=== PATIENT | male | born 1970 | race Caucasian/White ===

== ENCOUNTER 2016-08-23 18:35 | Emergency (ER) | payer MEDICAID, OTHER ==
[2016-08-23 18:46] VITALS: TEMP 98.6
--- NOTE | 2016-08-23 18:49 | EDPHY ---
H & P Stated Complaint: etoh Time Seen by Provider: 08/23/16 18:48 - Personal History Current Tetanus Diphtheria and Acellular Pertussis (TDAP): Yes Tetanus Vaccine Date: 2011 - Medical/Surgical History Hx Asthma: No Hx Chronic Respiratory Disease: No Hx Diabetes: No Hx Cardiac Disease: No Hx Renal Disease: No Hx Cirrhosis: No Hx Alcoholism: No Hx HIV/AIDS: No Hx Splenectomy or Spleen Trauma: No Other PMH: schizophrenia - Social History Smoking Status: Current every day smoker Constitutional: Initial Vital Signs Temperature (C) 37 C 08/23/16 18:43 Heart Rate 93 08/23/16 18:43 Respiratory Rate 16 08/23/16 18:43 Blood Pressure 118/80 08/23/16 18:43 O2 Sat (%) 94 08/23/16 18:43 O2 Delivery Mode Room Air Allergies/Adverse Reactions: No Known Allergies Allergy (Verified 06/21/12 01:54) Home Medications: Medication Instructions Recorded No Medications [No Meds] 1 ea MISC 11/12/12 Pharmacy Completed 11/12/12 11/12/12 AZITHROMYCIN [Z-PACK] 250 mg PO DAILY #1 packet 01/09/13 Albuterol [Proventil Inhaler HFA 1 - 2 puffs IH Q4PRN PRN #1 mdi 01/09/13 (*)] Remeron 01/09/13 Zyprexa 01/09/13 oxyCODONE/APAP 5/325 [Percocet 1 - 2 tab PO Q6-8PRN PRN #20 tab 01/29/13 5/325 (RX)] Medical Decision Making ED Course/Re-evaluation: CHIEF COMPLAINT: Alcohol intoxication. HISTORY OF PRESENT ILLNESS: The patient is a chronic alcoholic living on the [address]. Patient drinks on a daily basis and obtains whatever alcohol is available; he states, "I'm just a drunkard man." Patient was found by bystanders who called EMS system. Patient has had multiple ER visits over the last several years for the same complaint. Patient denies any injuries denies loss of consciousness denies any recent trauma. Patient denies co-ingestion. Patient denies suicidal or homicidal behavior. REVIEW OF SYSTEMS: A 10 point review of systems was performed and is negative with the exception of the elements mentioned in the history of present illness. PHYSICAL EXAM: General Appearance: Alert, well hydrated, appropriate, and non-toxic appearing. Smells of alcohol. Head: Healing scab on forehead, otherwise atraumatic without scalp tenderness or obvious injury Eyes: Pupils equal, round, reactive to light and accommodation, EOMI, no trauma , no injection. Nose: Atraumatic, no rhinorrhea, clear. Throat: Mucus membranes moist. Neck: Supple, nontender, no lymphadenopathy. Respiratory: No retractions, no distress, no wheezes, and no accessory muscle use. Lungs are clear to auscultation bilaterally. Cardiovascular: Regular rate and rhythm, no murmurs, rubs, or gallops. Good capillary refill all extremities. Gastrointestinal: Abdomen is soft, nontender, non-distended, no masses, no rebound, no guarding, no peritoneal signs. Musculoskeletal: Normal active ROM of all extremities, atraumatic. Neurological: Alert, appropriate, and interactive. Nonfocal neuro exam. Skin: No rashes, good turgor, no nodules on palpation. PAST MEDICAL HISTORY: Alcohol abuse PAST SURGICAL HISTORY: Denies SOCIAL HISTORY: Homeless, alcohol abuse DIFFERENTIAL DIAGNOSIS: The differential diagnosis for the patient's presentation included but was not limited to alcohol abuse, intoxicants, electrolyte abnormalities, G[employer] abnormalities. MEDICAL DECISION MAKING: I serially examined this patient since the patient's arrival here in the emergency department. The patient continues to become more and more sober with each examination. I serially questioned the patient and the patient's story given initially has not changed. The patient still denies any trauma, any head injury, and any illicit drug use. At this point, the patient is walking the department freely and is clinically sober. We're discharging the patient to the [facility] in stable condition. Departure - Departure Disposition: Home, Routine, Self-Care Clinical Impression: Alcohol intoxication Qualifiers: Complication of substance-induced condition: uncomplicated Qualified Code(s): F10.920 - Alcohol use, unspecified with intoxication, uncomplicated Condition: Good Instructions: Alcohol Intoxication (ED), Abuse of Alcohol (ED) Additional Instructions: Reduce alcohol use. Go to the [facility] if you wish to detox. Return to the ED for any worsening of condition. Referrals: [facility] Detox 24 Hours [Outside] - As per Instructions Report Scribed for: Jony Perez Report Scribed by: Janine Ortega Date of Report: 08/23/16 Time of Report: 18:58
[2016-08-23 19:24] VITALS: BP 110/77; PULSE 81; RESP 18; O2SAT 96
== END 2016-08-23 19:23 | disposition home or self-care (01) ==
LOC: EDUNIT#
DX: F10.120 Alcohol abuse with intoxication, uncomplicated (principal); F17.200 Nicotine dependence, unspecified, uncomplicated

== ENCOUNTER 2016-08-29 20:10 | Emergency (ER) | payer MEDICAID ==
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
[2016-08-29 20:48] LABS: % IMMATURE GRANULYOCYTES 0.4 % (0.0-1.1); ABSOLUTE IMMATURE GRANULOCYTES 0.04 10^3/uL (0.00-0.10); ADD DIFF? NO; ADD MORPH? NO; ADD SCAN? NO; ATYPICAL LYMPHOCYTE FLAG 0 (0-99); FRAGMENT RBC FLAG 0 (0-99); HEMATOCRIT 49.8 % (40.0-51.0); HEMOGLOBIN 17.3 g/dL (13.7-17.5); LEFT SHIFT FLG 0 (0-99); LIPEMIA HEMOLYSIS FLAG 90 (0-99); MEAN CELL HEMOGLOBIN 33.4 pg (27.9-34.1); MEAN CELL HEMOGLOBIN CONCENTR. 34.7 g/dL (32.4-36.7); MEAN CELL VOLUME 96.1 fL (81.5-99.8); MEAN PLATELET VOLUME 9.2 fL (8.7-11.7); PLATELET CLUMPS FLAG 0 (0-99); PLATELET COUNT 323 10^3/uL (150-400); RED BLOOD CELL COUNT 5.18 10^6/uL (4.40-6.38); RED CELL DISTRIBUTION WIDTH 15.9 % (11.5-15.2)
[2016-08-29 21:01] LABS: ANION GAP 21 mEq/L (8-16); CALCIUM 9.8 mg/dL (8.5-10.4); CARBON DIOXIDE 17 mEq/l (22-31); CHLORIDE 104 mEq/L (97-110); CREATININE 0.8 mg/dL (0.7-1.3); ETHANOL SERUM 299 mg/dL (0-10); GLOMERULAR FILTRATION RATE > 60; GLUCOSE 89 mg/dL (70-100); POTASSIUM 4.2 mEq/L (3.5-5.2); SODIUM 142 mEq/L (134-144)
[2016-08-29] MEDS ORDERED: LORazepam 1 MG TAB PO ONE (21:51)
[2016-08-29] MEDS ORDERED: LORazepam 1 MG TAB ONE (21:52)
[2016-08-29] MEDS ORDERED: NICOTINE 21 MG/24 HR PATCH TD ONE ×2 (21:52→21:56)
[2016-08-30] MEDS ORDERED: LORazepam 1 MG TAB PO ONE ×3 (07:48→23:03)
[2016-08-30] MEDS ORDERED: ONDANSETRON DISINTEGRATING 4 MG TAB PO ONE ×2 (10:25→14:48)
[2016-08-30] MEDS ORDERED: ONDANSETRON DISINTEGRATING 4 MG TAB ONE ×2 (14:43→23:00)
[2016-08-30] MEDS ORDERED: LORazepam 1 MG TAB ONE ×2 (14:43→23:00)
[2016-08-30] MEDS ORDERED: ONDANSETRON 4 MG/2 ML VIAL IVP ONE (23:04)
[2016-08-31] MEDS ORDERED: ONDANSETRON DISINTEGRATING 4 MG TAB PO ONE (11:40)
[2016-08-31] MEDS ORDERED: DIAZEPAM 5 MG TAB PO ONE (11:47)
[2016-08-31 15:30] VITALS: RESP 14
[2016-08-31] MEDS ORDERED: chlordiazePOXIDE 25 MG CAP PO ONE (15:38)
[2016-08-31] MEDS ORDERED: CHLORDIAZEPOXIDE 25MG PREPK#6 BTL TAKEHOME ONE ×2 (16:19→16:20)
[2016-08-31] MEDS ORDERED: ONDANSETRON DISINTEGRATING 4 MG TAB ONE (18:23)
[2016-08-31 18:36] VITALS: BP 126/93; PULSE 95; TEMP 98.8; O2SAT 96
== END 2016-08-31 18:52 ==
DX: R45.851 Suicidal ideations (principal); F20.9 Schizophrenia, unspecified; F17.200 Nicotine dependence, unspecified, uncomplicated
CPT/HCPCS: 80305; 96374; G0480

== ENCOUNTER 2017-01-12 12:20 | Emergency (ER) | payer MEDICAID ==
[2017-01-12 12:27] VITALS: BP 131/78; PULSE 110; RESP 16; TEMP 98.2; O2SAT 98
[2017-01-12] MEDS ORDERED: NS 500 ML IV ONE (12:27)
[2017-01-12] MEDS ORDERED: ALBUTEROL 3 ML DEYVIAL IH ONE ×3 (12:27→13:48)
[2017-01-12] MEDS ORDERED: methylPREDNISolone SOD SUCC 125 MG/2 ML VIAL IVP ONE (12:27)
--- NOTE | 2017-01-12 12:30 | EDPHY ---
H & P Time Seen by Provider: 01/12/17 12:21 HPI/ROS: CHIEF COMPLAINT: Shortness of breath HISTORY OF PRESENT ILLNESS: Patient developed cough and cold symptoms 2 months ago and has been short of breath ever since, worse over the last week with coughing and wheezing and worsening shortness of breath with exertion. Symptoms severe. Associated with coughing yellow sputum. He has to lidocaine patches on the right side of his chest where he relates that he fell down and injured his ribs about a week ago. REVIEW OF SYSTEMS: Eye: no change in vision ENT: no sore throat Cardiac: Denies syncope Pulmonary: HPI Abdomen: no vomiting, diarrhea, abdominal pain Musculoskeletal: no back pain or leg swelling Skin: no rash Neuro: no headache Constitutional: no fever : no urinary symptoms A comprehensive 10 point review of systems is otherwise negative aside from elements mentioned in the history of present illness. PAST MEDICAL HISTORY: Schizoaffective disorder. Patient tells me he is not currently taking any regular medications. Social history: Tobacco smoker, recent alcohol General Appearance: Alert and conversant, cooperative. Eyes: No scleral icterus. ENT, Mouth: Normal mucous membranes. Respiratory: Bilateral expiratory wheezes with prolonged expiratory phase and rhonchi, no focal lung sounds. Cardiovascular: Regular rate and rhythm. Gastrointestinal: Abdomen is soft and non tender. Neurological: Alert and oriented x3. Normally conversant. Face symmetric, normal movement and sensation in all extremities. Skin: Warm and dry, no rashes. Musculoskeletal: No peripheral edema and no joint swelling. No calf tenderness. Psychiatric: Not agitated. Emergency Department course/MDM: Received DuoNeb by the ambulance. Additional albuterol nebulizer and 125 mg Solu-Medrol IV, chest x-ray. Considered including but not limited to CHF, ACS, pulmonary edema, pulmonary embolism, all of which I feel are less likely than acute reactive airway disease. 1346: Chest x-ray report reviewed, possible left lower lung infiltrate. Patient has normal white blood cell count is not febrile and has normal room air oxygen saturation. Additional nebulizer treatments, will treat with Zithromax for bronchitis. 1446:Ambulatory to the bathroom, discharge with prednisone and oral antibiotics and inhaler. Room air saturation in the mid 90s. Smoking Status: Current every day smoker Constitutional: Initial Vital Signs Temperature (C) 36.8 C 01/12/17 12:25 Heart Rate 110 H 01/12/17 12:25 Respiratory Rate 16 01/12/17 12:25 Blood Pressure 131/78 H 01/12/17 12:25 O2 Sat (%) 98 01/12/17 12:25 O2 Delivery Mode Room Air Allergies/Adverse Reactions: No Known Allergies Allergy (Verified 06/21/12 01:54) Home Medications: Medication Instructions Recorded Albuterol [Proventil Inhaler HFA 1 - 2 puffs IH Q4PRN PRN #1 mdi 01/09/13 (*)] Risperdal 08/29/16 Thorazine (*) 08/29/16 Zoloft 50mg (*) 08/29/16 chlordiazePOXIDE [Librium 25 mg 50 mg PO TID PRN #14 cap 08/31/16 (*)] AZITHROMYCIN [Z-PACK] 250 mg PO DAILY #4 tab 01/12/17 Albuterol Hfa Anes Only [Proair 2 puffs IH QID #1 mdi 01/12/17 Hfa Icu (*)] predniSONE [prednisone 20mg (RX)] 60 mg PO DAILY 5 Days tab 01/12/17 Medical Decision Making - Diagnostics Imaging Results: Imaging Impressions Chest X-Ray 01/12/17 12:27 Impression: 1. Patchy left basilar opacities could be related to atelectasis or pneumonia. 2. Additional findings, as above. Chest x-ray personally interpreted shows bronchitis pattern and small left pleural effusion, no pneumonia, no pneumothorax. Differential Diagnosis: Differential diagnosis considered for shortness of breath including but not limited to pulmonary infectious process, COPD, asthma, pulmonary embolus and congestive heart failure. - Data Points Laboratory Results: Laboratory Results 01/12/17 12:24 01/12/17 12:24 01/12/17 01/12/17 12:24 12:24 WBC 10.34 10^3/uL H 10^3/uL (3.80-9.50) RBC 4.26 10^6/uL L 10^6/uL (4.40-6.38) Hgb 15.5 g/dL g/dL (13.7-17.5) Hct 43.8 % % (40.0-51.0) MCV 102.8 fL H fL (81.5-99.8) MCH 36.4 pg H pg (27.9-34.1) MCHC 35.4 g/dL g/dL (32.4-36.7) RDW 14.9 % % (11.5-15.2) Plt Count 125 10^3/uL L 10^3/uL (150-400) MPV 10.4 fL fL (8.7-11.7) Neut % (Auto) 73.8 % % (39.3-74.2) Lymph % (Auto) 12.3 % L % (15.0-45.0) [place] % (Auto) 12.2 % % (4.5-13.0) Eos % (Auto) 0.2 % L % (0.6-7.6) Baso % (Auto) 0.8 % % (0.3-1.7) Nucleat RBC Rel Count 0.0 % % (0.0-0.2) Absolute Neuts (auto) 7.64 10^3/uL H 10^3/uL (1.70-6.50) Absolute Lymphs (auto) 1.27 10^3/uL 10^3/uL (1.00-3.00) Absolute Monos (auto) 1.26 10^3/uL H 10^3/uL (0.30-0.80) Absolute Eos (auto) 0.02 10^3/uL L 10^3/uL (0.03-0.40) Absolute Basos (auto) 0.08 10^3/uL 10^3/uL (0.02-0.10) Absolute Nucleated RBC 0.00 10^3/uL 10^3/uL (0-0.01) Immature Gran % 0.7 % % (0.0-1.1) Immature Gran # 0.07 10^3/uL 10^3/uL (0.00-0.10) Sodium 142 mEq/L mEq/L (134-144) Potassium 3.8 mEq/L mEq/L (3.5-5.2) Chloride 99 mEq/L mEq/L (97-110) Carbon Dioxide 24 mEq/l mEq/l (22-31) Anion Gap 19 mEq/L H mEq/L (8-16) BUN 13 mg/dL mg/dL (7-23) Creatinine 0.7 mg/dL mg/dL (0.7-1.3) Estimated GFR > 60 Glucose 92 mg/dL mg/dL (70-100) Calcium 9.3 mg/dL mg/dL (8.5-10.4) Medications Given: Discontinued Medications Albuterol (Proventil Neb) 3 ml IH EDNOW ONE Stop: 01/12/17 12:28 Last Admin: 01/12/17 12:34 Dose: 3 ml Albuterol (Proventil Neb) 3 ml IH EDNOW ONE Stop: 01/12/17 12:28 Last Admin: 01/12/17 12:34 Dose: 3 ml Albuterol (Proventil Neb) 3 ml IH EDNOW ONE Stop: 01/12/17 13:49 Last Admin: 01/12/17 14:08 Dose: 3 ml Azithromycin (Zithromax) 500 mg PO EDNOW ONE PRN Reason: Protocol Stop: 01/12/17 13:51 Last Admin: 01/12/17 14:08 Dose: 500 mg Sodium Chloride (Ns) 500 mls @ 1,000 mls/hr IV EDNOW ONE PRN Reason: Protocol Stop: 01/12/17 12:56 Last Admin: 01/12/17 12:34 Dose: 500 mls Methylprednisolone Sodium Succinate (Solu-Medrol) 125 mg IVP EDNOW ONE Stop: 01/12/17 12:28 Last Admin: 01/12/17 12:33 Dose: 125 mg Departure - Departure Disposition: Home, Routine, Self-Care Clinical Impression: Reactive airway disease Qualifiers: Asthma severity: moderate Asthma persistence: persistent Asthma complication type: with acute exacerbation Qualified Code(s): J45.41 - Moderate persistent asthma with (acute) exacerbation Acute bronchitis Qualifiers: Bronchitis organism: unspecified organism Qualified Code(s): J20.9 - Acute bronchitis, unspecified Condition: Good Instructions: Reactive Airways Disease (ED) Referrals: [facility],. [Clinic] - As per Instructions Prescriptions: Albuterol Hfa Anes Only [Proair Hfa Icu (*)] 2 puffs IH QID #1 mdi AZITHROMYCIN [Z-PACK] 250 mg PO DAILY #4 tab predniSONE [prednisone 20mg (RX)] 60 mg PO DAILY 5 Days tab
[2017-01-12 12:31] LABS: % IMMATURE GRANULYOCYTES 0.7 % (0.0-1.1); ABSOLUTE IMMATURE GRANULOCYTES 0.07 10^3/uL (0.00-0.10); ADD DIFF? NO; ADD MORPH? NO; ADD SCAN? NO; ATYPICAL LYMPHOCYTE FLAG 20 (0-99); FRAGMENT RBC FLAG 0 (0-99); HEMATOCRIT 43.8 % (40.0-51.0); HEMOGLOBIN 15.5 g/dL (13.7-17.5); LEFT SHIFT FLG 0 (0-99); LIPEMIA HEMOLYSIS FLAG 90 (0-99); MEAN CELL HEMOGLOBIN 36.4 pg (27.9-34.1); MEAN CELL HEMOGLOBIN CONCENTR. 35.4 g/dL (32.4-36.7); MEAN CELL VOLUME 102.8 fL (81.5-99.8); MEAN PLATELET VOLUME 10.4 fL (8.7-11.7); PLATELET CLUMPS FLAG 10 (0-99); PLATELET COUNT 125 10^3/uL (150-400); RED BLOOD CELL COUNT 4.26 10^6/uL (4.40-6.38); RED CELL DISTRIBUTION WIDTH 14.9 % (11.5-15.2)
[2017-01-12 12:46] LABS: ANION GAP 19 mEq/L (8-16); CALCIUM 9.3 mg/dL (8.5-10.4); CARBON DIOXIDE 24 mEq/l (22-31); CHLORIDE 99 mEq/L (97-110); CREATININE 0.7 mg/dL (0.7-1.3); GLOMERULAR FILTRATION RATE > 60; GLUCOSE 92 mg/dL (70-100); POTASSIUM 3.8 mEq/L (3.5-5.2); SODIUM 142 mEq/L (134-144)
[2017-01-12] MEDS ORDERED: AZITHROMYCIN 250 MG TAB PO ONE ×2 (13:50→14:09)
== END 2017-01-12 15:03 | disposition home or self-care (01) ==
LOC: EDUNIT#
PROC: 3E0337Z Introduction of Electrolytic and Water Balance Substance into Peripheral Vein, Percutaneous Approach (ICD-10-PCS; principal; 2017-01-12)
DX: J20.9 Acute bronchitis, unspecified (principal); J45.41 Moderate persistent asthma with (acute) exacerbation; E86.9 Volume depletion, unspecified; F17.200 Nicotine dependence, unspecified, uncomplicated
CPT/HCPCS: 96374; J2930

== ENCOUNTER 2017-01-28 14:27 | Emergency (ER) | payer MEDICAID ==
[2017-01-28 14:34] VITALS: BP 125/94; PULSE 96; RESP 16; TEMP 98.4; O2SAT 95
[2017-01-28] MEDS ORDERED: CHLORDIAZEPOXIDE 25MG PREPK#6 BTL TAKEHOME ONE (14:47)
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
--- NOTE | 2017-01-28 17:17 | ASMTCMCOM ---
CM Note CM Note Notes: Assisted with filling patient's prescriptions through his Medicaid at [facility]. Patient provided medications and pre-pack of Librium and discharged to the [facility] via cab voucher. Patient is homeless and aware of homeless resources, including [facility] [facility]. CM available for further assistance. Date Signed: 01/28/2017 05:17 PM Electronically Signed By:Stephanie Espinoza RN
--- NOTE | 2017-01-28 17:21 | ASDISCHSUM ---
Discharge Information Plan Status:Substance Abuse Referrals Medically Cleared to Leave: Discharge Date:01/28/2017 04:40 PM CM D/C Disposition:Streets (Homeless) ADT D/C Disposition:Home, Routine, Self-Care Projected Discharge Date:01/28/2017 04:40 PM Transportation at D/C:Cab Voucher Discharge Delay Reason: Follow-Up Date:01/28/2017 04:40 PM Discharge Slot: Final Diagnosis: Placement Information Patient Contact Information Contact Name:DAVID Relationship:Father Address: Work Phone: City: [facility] Phone: State/Zip Code: Email: Financial Information Financial Class: Primary Plan Desc:MEDICAID HEALTH FIRST LAUNDRY AGENT Primary Plan Number:[id number] Secondary Plan Desc: Secondary Plan Number: Assessment Information LACE LACE Acuity / Level of Care Answers: No. Emergency dept visits in Answers: 4+ last 6 months Score: 4 Date Signed: 01/28/2017 03:31 PM Electronically Signed By:Stephanie Espinoza RN [facility] CM Progress Note CM Note CM Note Notes: Assisted with filling patient's prescriptions through his Medicaid at [facility]. Patient provided medications and pre-pack of Librium and discharged to the [facility] via cab voucher. Patient is homeless and aware of homeless resources, including [facility] [facility]. CM available for further assistance. Date Signed: 01/28/2017 05:17 PM Electronically Signed By:Stephanie Espinoza RN Intervention Information Intervention Type:Medication Date of Service:01/28/2017 05:17 PM Patient Type:Emergency Room Staff Member:DWAYNE Espinoza Sharon Hours:0.5 Discipline:Copy Holder Severity: Comment:Filled patients medications at [facility] through patient's Medicaid. Also a Librium pre-pack was provided. Intervention Type:Cab Vouchers Date of Service:01/28/2017 05:17 PM Patient Type:Emergency Room Staff Member:DWAYNE Espinoza Sharon Hours:0.25 Discipline:Copy Holder Severity: Comment:[facility] cab voucher used to transport yoandy ent.
== END 2017-01-28 16:40 | disposition home or self-care (01) ==
DX: J20.9 Acute bronchitis, unspecified (principal); F10.239 Alcohol dependence with withdrawal, unspecified

== ENCOUNTER 2017-10-17 09:33 | Emergency (ER) | payer MEDICAID ==
[2017-10-17] MEDS ORDERED: OXYCODONE/APAP 5/325 TAB PO ONE (09:56)
--- NOTE | 2017-10-17 09:56 | EDPHY ---
General Time Seen by Provider: 10/17/17 09:49 Narrative: CHIEF COMPLAINT: Fall, left clavicle shoulder pain HISTORY OF PRESENT ILLNESS: Patient presents with complaints of left shoulder and clavicle plain after falling yesterday. He says he was "roughhousing and sparring," when he reports falling to the ground. He says he struck his shoulder and felt a sudden onset of pain in the left clavicle shoulder. No head strike or loss of consciousness. He says he does feel sore all over but is concerned as the clavicle. Worse with palpation and movement. No position of comfort. 11/26. No radiating pain. No numbness or tingling. No shortness of breath or chest pain. There is a small scratch to the back of the neck that is non concerning to him. No other associated complaints or modifying factors. Tetanus up-to- date less than 2 years ago DOMINANT EXTREMITY: Right-hand dominant ESTABLISHED ORTHOPEDIST: None REVIEW OF SYSTEMS: Ten systems reviewed and are negative unless otherwise noted in the HPI PAST MEDICAL HISTORY: Schizophrenia, asthma PAST SURGICAL HISTORY: No surgical history SOCIAL HISTORY: Occasional smoker. Occasional alcohol use. Denies any drug use. Currently disabled and homeless FAMILY HISTORY: Noncontributory EXAMINATION General Appearance: Alert, no distress HEENT: Normocephalic. Atraumatic. Pupils equal round reactive. Ears are clear Neck: Supple nontender. No crepitus or deformity. Superficial abrasion over the base of the neck. Cardiovascular: Symmetric radial pulses with brisk cap refill the fingers left hand. Neurological: A&O, 2 point sensation intact in the fingers left hand. Interossei strength symmetric. No wrist drop on the left. Skin: Warm and dry, no rash. Superficial abrasion. No laceration or puncture Extremities: Significant ecchymosis, swelling and tenderness of the left clavicle. There is mild tenderness of the left shoulder with hesitation range of motion due to the clavicle injury. Range of motion of the elbows, wrists and fingers symmetric. Range of motion lower extremities unremarkable. All compartments are soft the left upper extremity. Psychiatric: Mood and affect normal DIFFERENTIAL DIAGNOSES: Including but not limited to clavicle fracture, shoulder sprain, shoulder dislocation, shoulder fracture, pneumothorax MDM: 9:55 a.m. Reported mechanical fall with blunt trauma to the left shoulder with swelling, ecchymosis, pain suggestive of clavicular fracture. No evidence of compartment syndrome. I do not feel that dislocation is likely. Lungs are clear in all franklin with good auscultation left upper lobe. He is neurovascular intact distal to the injury. I have ordered pain medication by mouth. I have ordered x-ray of the shoulder. 10:20 a.m. X-ray reveals fracture of the left clavicle with some angulation in overriding of the fracture segments. This is a closed injury. He is neuro intact distally. Will place him in a shoulder sling, case management will visit with him, and he will be discharged home with short course of pain medication. we discussed ED precautions, mandatory orthopedic follow-up, ice, elevation medications. I have answered all his questions. He is discharged home stable condition. 11:00 a.m. Patient has been seen by rn case manager hospiceStephanie. She has contacted the office of Dr. Matute and arranged for the patient to be seen on Friday at 1:30 p.m. [place]. Patient agrees to comply with this plan and knows that he must be seen by him for optimal management of this fracture. SUPERVISION: This patient was independently evaluated without direct involvement of or examination by the attending physician. ED Precautions: Worsening pain. Erythema, edema, cyanosis, pallor, paresthesia or anesthesia. - History Smoking Status: Current every day smoker - Objective Vital Signs: Initial Vital Signs Temperature (C) 98.1 F 10/17/17 09:34 Heart Rate 105 H 10/17/17 09:34 Respiratory Rate 16 10/17/17 09:34 Blood Pressure 123/83 H 10/17/17 09:34 O2 Sat (%) 96 10/17/17 09:34 O2 Delivery Mode Room Air Allergies/Adverse Reactions: No Known Allergies Allergy (Verified 01/28/17 14:29) Home Medications: Medication Instructions Recorded Albuterol [Proventil Inhaler HFA 1 - 2 puffs IH Q4PRN PRN #1 mdi 01/28/17 (*)] Celexa 10/17/17 Ibuprofen 600 mg PO TID #30 tablet 10/17/17 Risperdal 10/17/17 oxyCODONE HCL/ACETAMINOPHEN 1 each PO Q4-6PRN PRN #11 tablet 10/17/17 [Percocet 5-325 mg Tablet] Medications Given: Discontinued Medications Oxycodone/Acetaminophen (Percocet 5/325) 2 tab PO EDNOW ONE Stop: 10/17/17 09:57 Last Admin: 10/17/17 10:02 Dose: 2 tab Departure - Departure Disposition: Home, Routine, Self-Care Clinical Impression: Clavicle fracture, shaft Qualifiers: Encounter type: initial encounter Fracture type: closed Fracture alignment: displaced Laterality: left Qualified Code(s): S42.022A - Displaced fracture of shaft of left clavicle, initial encounter for closed fracture Condition: Good Instructions: Clavicle Fracture (ED) Additional Instructions: 1. Sling for comfort. Removed 3 times daily for range of motion is demonstrated 2. Ice and elevation often 3. Pain medication as prescribed as needed 4. Ibuprofen medication as prescribed as needed 5. Follow up with Orthopedics for definitive care 6. ED precautions for worsening pain, numbness, tingling, wrist drop Referrals: [facility],. [Clinic] - As per Instructions [facility],. [Clinic] - As per Instructions Eliel Matute MD [Medical Doctor] - As per Instructions (Friday at 1:30 p.m.) Prescriptions: Ibuprofen 600 mg PO TID #30 tablet oxyCODONE HCL/ACETAMINOPHEN [Percocet 5-325 mg Tablet] 1 each PO Q4-6PRN PRN # 11 tablet PRN Reason: Pain, Breakthrough
[2017-10-17 10:56] VITALS: BP 123/85
--- NOTE | 2017-10-17 12:59 | ASMTCMCOM ---
CM Note CM Note Notes: Requested to assist pt with getting a follow-up appt w/the on-call orthopedist, Dr Eliel Matute at [facility]; able to get pt an appt on Friday10/21/17 at 1:30pm. Pt agreeable and appreciative. Pt aware he needs to arrive by 1:15pm. Pt states he also plans on following up w[facility] this next week. Pt has been staying at his friends house and his current cell # is [phone]. CM available for further assistance if needed. Date Signed: 10/17/2017 12:58 PM Electronically Signed By:Stephanie Espinoza RN
== END 2017-10-17 11:01 | disposition home or self-care (01) ==
DX: S42.022A Displaced fracture of shaft of left clavicle, initial encounter for closed fracture (principal); F17.200 Nicotine dependence, unspecified, uncomplicated; Z59.0 Homelessness; W19.XXXA Unspecified fall, initial encounter; Y93.83 Activity, rough housing and horseplay
CPT/HCPCS: A4565

== ENCOUNTER 2017-10-19 20:25 | Emergency (ER) | payer MEDICAID ==
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
[2017-10-19] MEDS ORDERED: CHLORDIAZEPOXIDE 25MG PREPK#6 BTL TAKEHOME ONE (23:12)
[2017-10-19 23:39] VITALS: BP 120/81
== END 2017-10-19 23:39 | disposition home or self-care (01) ==
LOC: EDUNIT#
DX: F10.10 Alcohol abuse, uncomplicated (principal); F17.200 Nicotine dependence, unspecified, uncomplicated; Z59.0 Homelessness

== ENCOUNTER 2017-11-20 19:36 | Emergency (ER) | payer OTHER ==
--- NOTE | 2017-11-20 20:46 | EDPHY ---
H & P Smoking Status: Current every day smoker Time Seen by Provider: 11/20/17 20:00 HPI/ROS: CHIEF COMPLAINT: Medical clearance for incarceration HISTORY OF PRESENT ILLNESS: 47-year-old male here with history of alcohol abuse brought by EMS for a clearance for incarceration. Patient denies any pain anywhere. Denies any medical concerns. Denies any chest pain or shortness of breath or abdominal pain or injuries. REVIEW OF SYSTEMS: Constitutional: No fever, no chills. Eyes: No discharge. ENT: No sore throat. Cardiovascular: No chest pain, no palpitations. Respiratory: No cough, no shortness of breath. Gastrointestinal: No abdominal pain, no vomiting. Genitourinary: No hematuria. Musculoskeletal: No back pain. Skin: No rashes. Neurological: No headache. (Bakari Guadalupe) Physical Exam: General Appearance: Alert and no distress. Smells of alcohol Eyes: Pupils equal and round no injection. Respiratory: Chest is nontender, lungs are clear to auscultation. Cardiac: regular rate and rhythm. Gastrointestinal: Abdomen is soft and nontender, no masses, bowel sounds normal. Musculoskeletal: Neck is supple and nontender. Extremities have full range of motion and are nontender. Skin: No rashes or lesions. (Bakari Guadalupe) Constitutional: Initial Vital Signs Temperature (C) 36.8 C 11/20/17 19:48 Heart Rate 67 11/20/17 19:48 Respiratory Rate 18 11/20/17 19:48 Blood Pressure 174/101 H 11/20/17 19:48 O2 Sat (%) 97 11/20/17 19:48 O2 Delivery Mode Room Air Allergies/Adverse Reactions: No Known Allergies Allergy (Verified 11/20/17 19:48) Home Medications: Medication Instructions Recorded Albuterol [Proventil Inhaler HFA 1 - 2 puffs IH Q4PRN PRN #1 mdi 01/28/17 (*)] Celexa 10/17/17 Ibuprofen 600 mg PO TID #30 tablet 10/17/17 Risperdal 10/17/17 oxyCODONE HCL/ACETAMINOPHEN 1 each PO Q4-6PRN PRN #11 tablet 10/17/17 [Percocet 5-325 mg Tablet] Medical Decision Making ED Course/Re-evaluation: I did not see this patient while he was in the emergency department. However his care was discussed with the PA while the patient was in the department. I agree with treatment plan and management (Pantera Bolden) 47-year-old male here for medical clearance for incarceration. He is intoxicated and has a positive of breath alcohol. Additionally his blood sugars within normal limits. He is alert and oriented and ambulatory in cleared for incarceration. (Bakari Guadalupe) Differential Diagnosis: Polysubstance abuse, seizure, (Bakari Guadalupe) - Data Points Laboratory Results: 11/20/17 20:31 POC Glucose 86 mg/dL mg/dL (70-100) Point of Care Test Results: Chemistry 11/20/17 20:31 POC Glucose 86 mg/dL mg/dL (70-100) Departure - Departure Disposition: Home, Routine, Self-Care Clinical Impression: Alcohol intoxication Condition: Fair Instructions: Abuse of Alcohol (ED) Additional Instructions: The patient is medically cleared for incarceration Referrals: NONE *PRIMARY CARE P,. [Primary Care Provider] - As per Instructions [facility],. [Clinic] - As per Instructions
[2017-11-20 20:53] VITALS: BP 146/80
== END 2017-11-20 20:52 | disposition home or self-care (01) ==
LOC: EDUNIT#
DX: F10.920 Alcohol use, unspecified with intoxication, uncomplicated (principal)

== ENCOUNTER 2018-03-08 18:11 | Emergency (ER) | payer MEDICAID ==
[2018-03-08 18:16] VITALS: BP 140/86
[2018-03-08] MEDS ORDERED: CHLORDIAZEPOXIDE 25MG PREPK#6 BTL TAKEHOME ONE (18:19)
--- NOTE | 2018-03-08 18:20 | EDPHY ---
H & P Time Seen by Provider: 03/08/18 18:12 HPI/ROS: CHIEF COMPLAINT: Alcohol intoxication HISTORY OF PRESENT ILLNESS: Patient is a 48-year-old male who presents emergency department intoxicated. Police initially found the patient fairly somnolent brought to the emergency department for evaluation. Once patient arrived in the emergency department he is talkative and walking. Patient reports drinking alcohol. He has no complaints. Police state they will take him to [facility] recovery Center. REVIEW OF SYSTEMS: 10 systems were reveiwed and are negative with the exception of the elements mentioned in the history of present illness. Past Medical/Surgical History: Includes alcohol abuse Social History: Alcohol abuse Smoking Status: Current every day smoker Physical Exam: Vitals noted GENERAL: No acute distress, alert. HEENT: Injected conjunctiva. No signs of dehydration NECK: Normal, supple. RESPIRATORY: Clear to auscultation bilaterally, no rales, rhonchi or wheezing. CVS: Regular rate and rhythm, no rubs, murmurs, or gallops. ABDOMEN: Soft, nontender. BACK: Normal to inspection. SKIN: Normal color, no rash, warm, dry. No pallor. EXTREMITIES: No pedal edema, no joint swelling. NEURO/PSYCH: Intoxicated appearing, normal motor sensory exam. Constitutional: Initial Vital Signs Temperature (C) 36.8 C 03/08/18 18:13 Heart Rate 100 03/08/18 18:13 Respiratory Rate 16 03/08/18 18:13 Blood Pressure 140/86 H 03/08/18 18:13 O2 Sat (%) 94 03/08/18 18:13 O2 Delivery Mode Room Air Allergies/Adverse Reactions: No Known Allergies Allergy (Verified 11/20/17 19:48) Home Medications: Medication Instructions Recorded Albuterol [Proventil Inhaler HFA 1 - 2 puffs IH Q4PRN PRN #1 mdi 01/28/17 (*)] Celexa 10/17/17 Ibuprofen 600 mg PO TID #30 tablet 10/17/17 Risperdal 10/17/17 oxyCODONE HCL/ACETAMINOPHEN 1 each PO Q4-6PRN PRN #11 tablet 10/17/17 [Percocet 5-325 mg Tablet] Medical Decision Making ED Course/Re-evaluation: Patient was able to ambulate in the emergency department. He answers my questions. The patient feels comfortable discharge. Differential Diagnosis: My differential includes but is not limited to alcohol intoxication, drug abuse , dehydration, electrolyte abnormality, sugar abnormality Departure - Departure Disposition: Home, Routine, Self-Care Clinical Impression: Alcoholic intoxication Qualifiers: Complication of substance-induced condition: uncomplicated Qualified Code(s): F10.920 - Alcohol use, unspecified with intoxication, uncomplicated Condition: Good Instructions: Alcohol Intoxication (ED) Referrals: [facility],. [Clinic] - 5-7 days, call for appt.
== END 2018-03-08 18:32 | disposition home or self-care (01) ==
LOC: EDUNIT#
DX: F10.920 Alcohol use, unspecified with intoxication, uncomplicated (principal)

== ENCOUNTER 2018-03-21 11:27 | Emergency (ER) | payer MEDICAID, OTHER ==
[2018-03-21 11:33] VITALS: BP 130/91
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
== END 2018-03-21 12:02 | disposition home or self-care (01) ==
DX: H61.001 Unspecified perichondritis of right external ear (principal); L03.011 Cellulitis of right finger; F17.200 Nicotine dependence, unspecified, uncomplicated; Z59.0 Homelessness

== ENCOUNTER 2018-03-22 13:10 | Emergency (ER) | payer MEDICAID ==
[2018-03-22 13:22] VITALS: BP 143/113
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
== END 2018-03-22 15:27 | disposition home or self-care (01) ==
DX: S42.291A Other displaced fracture of upper end of right humerus, initial encounter for closed fracture (principal); M79.601 Pain in right arm; H92.01 Otalgia, right ear; W00.0XXA Fall on same level due to ice and snow, initial encounter; Y92.9 Unspecified place or not applicable; Y93.9 Activity, unspecified; Y99.9 Unspecified external cause status
CPT/HCPCS: A4565

== ENCOUNTER 2018-05-31 19:58 | Emergency (ER) | payer MEDICAID ==
[2018-05-31] MEDS ORDERED: methylPREDNISolone SOD SUCC 125 MG/2 ML VIAL IVP ONE (20:03)
[2018-05-31] MEDS ORDERED: IPRATROPIUM/ALBUTEROL 3 ML DEYVIAL IH ONE (20:03)
[2018-05-31] MEDS ORDERED: NS 1,000 ML IV ONE (20:03)
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
[2018-05-31 20:22] LABS: PLATELET COUNT 70 10^3/uL (150-400)
[2018-05-31] MEDS ORDERED: CHLORDIAZEPOXIDE 25MG PREPK#6 BTL TAKEHOME ONE (23:17)
[2018-05-31 23:53] VITALS: BP 136/92
== END 2018-05-31 23:55 | disposition home or self-care (01) ==
LOC: EDUNIT#
DX: J40 Bronchitis, not specified as acute or chronic (principal); F10.920 Alcohol use, unspecified with intoxication, uncomplicated; E86.9 Volume depletion, unspecified; F17.200 Nicotine dependence, unspecified, uncomplicated; Z59.0 Homelessness
CPT/HCPCS: 96374; G0480; J2930